=== PATIENT | female | born 1935 | race Caucasian/White ===

== ENCOUNTER 2020-06-27 09:41 | Inpatient (IN) | payer BC, MEDICARE ==
[~2020-06-27] VITALS: Ht 162.6 cm; Wt 56.8 kg
--- NOTE | 2020-06-27 10:04 | NUR ---
ED Nurse Note:caregiver Andrea [phone]
--- NOTE | 2020-06-27 10:09 | NUR ---
ED Nurse Note: PT AMBULATED TO ED C/O LOWER ABDOMEN PAIN X 5 WEEKS. PT DENIES N/V/D
[2020-06-27 10:11] VITALS: BP 125/45
[2020-06-27] MEDS ORDERED: Omnipaque-300 100ml vial INJ PRN ×2 (10:15→18:00)
[2020-06-27] MEDS ORDERED: CATAPRES0.1 MG ORAL (10:17)
[2020-06-27] MEDS ORDERED: TRAMADOL HCL50 MG ORAL (10:17)
[2020-06-27] MEDS ORDERED: CYMBALTA60 MG ORAL (10:17)
[2020-06-27] MEDS ORDERED: GABAPENTIN600 MG ORAL (10:17)
[2020-06-27] MEDS ORDERED: TIZANIDINE HCL4 MG ORAL (10:17)
[2020-06-27] MEDS ORDERED: LOSARTAN POTASS50 MG ORAL (10:17)
[2020-06-27] MEDS ORDERED: NAMENDA10 MG ORAL (10:17)
[2020-06-27] MEDS ORDERED: ARICEPT5 MG ORAL (10:17)
[2020-06-27] MEDS ORDERED: MOBIC15 MG ORAL (10:17)
--- NOTE | 2020-06-27 10:31 | NUR ---
ED Nurse Note: XRAY AT BEDSIDE
[2020-06-27 10:41] LABS: BASOPHILS % (AUTO) 1.2 % (0.0-2.0); EOSINOPHILS % (AUTO) 2.7 % (0.0-3.0); HEMATOCRIT 37.6 % (37.0-47.0); HEMOGLOBIN 12.8 G/DL (12.0-16.0); LYMPHOCYTES % (AUTO) 24.4 % (20.0-45.0); MEAN CORPUSCULAR VOLUME 96 FL (80-99); MONOCYTES % (AUTO) 10.6 % (1.0-10.0); PLATELET COUNT 449 K/UL (150-450); RED BLOOD COUNT 3.92 M/UL (4.20-5.40); RED CELL DISTRIBUTION WIDTH 13.4 % (11.6-14.8); WHITE BLOOD COUNT 7.5 K/UL (4.8-10.8)
[2020-06-27] MEDS ORDERED: Morphine Sulfate 4mg/ml Inj (IV USE ONLY) IVP ONE (10:45)
[2020-06-27 10:51] LABS: CALCIUM 9.1 MG/DL (8.5-10.1); CREATININE 1.4 MG/DL (0.55-1.30); POTASSIUM 4.7 MMOL/L (3.5-5.1)
[2020-06-27 10:59] LABS: ALBUMIN 3.2 G/DL (3.4-5.0); BILIRUBIN,TOTAL 0.3 MG/DL (0.2-1.0)
--- NOTE | 2020-06-27 11:14 | NUR ---
ED Nurse Note: Pt taken to CT on robb
[2020-06-27 11:40] VITALS: BP 91/35
--- NOTE | 2020-06-27 12:49 | Diagnostic Imaging Report ---
Clinical Indication: Right lower quadrant pain Technique: No oral contrast utilized, per emergency room physician request IV administration nonionic contrast. Venous phase spiral acquisition obtained through the abdomen and pelvis. Multiplanar reconstructions were generated. Total dose length product 260 mGycm. CTDIvol(s) 4 mGy. Dose reduction achieved using automated exposure control Comparison: none Findings: Lack of enteric contrast limits assessment of the GI tract. Distal small bowel loops are borderline dilated, fluid-filled, although no definite transition point is demonstrated. Proximal small bowel loops are normal in caliber. There is colonic diverticulosis. No evidence of acute diverticulitis. The proximal colon contains a moderate amount of retained stool. The appendix is not visualized, but no findings to suggest acute appendicitis are evident. No free or loculated intraperitoneal gas or fluid. The distal esophagus, stomach, duodenum are unremarkable. The liver demonstrates some focal fatty change in the usual location adjacent to the falciform ligament. The gallbladder is unremarkable. The common bile duct is mildly ectatic, measuring 7 mm in diameter. No downstream obstructive lesion is demonstrated. Somewhat ectatic downstream pancreatic duct. The pancreas is unremarkable. The spleen, adrenals, right kidney are unremarkable. Left kidney demonstrates one or more subcentimeter low-attenuation lesions, too small to characterize. No pelvic mass or adenopathy. Normal uterus and adnexal structures. The included lung bases demonstrate some atelectatic changes. The bones demonstrate degenerative spondylosis changes. There is a vertebra plana type compression fracture deformity of the T11 vertebral body, with approximately 5 mm of posterior retropulsion and approximately 70% height loss. Vacuum within the collapsed vertebral body suggests chronicity. Impression: Limited assessment of the GI tract, due to lack of enteric contrast administration Borderline dilated fluid-filled small bowel loops without definite transition point, may reflect mild enteritis changes. Possibility of low-grade small bowel obstruction should also be considered, but thought to be less likely Moderate retained proximal colonic stool, could indicate constipation Nonvisualized appendix Age indeterminate likely old T11 vertebral body compression fracture with 70% height loss. Consider MRI for better characterization if clinically relevant Other findings as noted, including dependent pulmonary atelectatic changes, degenerative spondylosis, probable small renal cysts, focal fatty change within the liver The CT scanner at [facility] is accredited by the [employer] and the scans are performed using protocols designed to limit radiation exposure to as low as reasonably achievable to attain images of sufficient resolution adequate for diagnostic evaluation.
--- NOTE | 2020-06-27 13:11 | Emergency Room Report ---
History of Present Illness General Chief Complaint: Abdominal Pain Source: Patient Present Illness HPI 84-year-old female here with lower abdominal pain for 3 weeks. Patient says that she has been having severe intermittent lower abdominal pain worse in the left lower quadrant over the past 3 weeks. Pain is dull in nature, occasionally radiates to her left flank. Feels intermittently nauseous but is not vomited. Says that she has been able to have bowel movements but says that she feels more constipated than usual. No change in bowel movement color or caliber. Denies fevers, chills, chest pain, palpitations, shortness of breath, back pain, other abdominal pain, nausea, vomiting, diarrhea, dysuria. 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 COVID-19 Screening: Negative COVID-19 COVID-19 Testing Source: nasal Nursing Documentation-[facility] Past Medical History: No History, Except For Hx Hypertension: Yes Hx Gastrointestinal Problems: Yes - appendectomy History Of Psychiatric Problem: Yes - dementia Review of Systems All Other Systems: negative except mentioned in HPI Physical Exam Vital Signs Date Time Temp Pulse Resp B/P (MAP) Pulse Ox O2 Delivery O2 Flow Rate FiO2 06/27/20 09:56 97.5 102 19 93/61 (72) 97 Room Air Sp02 EP Interpretation: reviewed, normal General Appearance: no apparent distress, alert, GCS 15, non-toxic Head: normocephalic, atraumatic Eyes: bilateral eye normal inspection, bilateral eye PERRL ENT: hearing grossly normal, normal pharynx, no angioedema, normal voice Neck: full range of motion, supple/symm/no masses Respiratory: chest non-tender, lungs clear, normal breath sounds, speaking full sentences Cardiovascular #1: regular rate, rhythm, no edema Cardiovascular #2: 2+ carotid (R), 2+ carotid (L), 2+ radial (R), 2+ radial (L), 2+ dorsalis pedis (R), 2+ dorsalis pedis (L) Gastrointestinal: normal bowel sounds, soft, non-distended, no guarding, no rebound, other - Diffuse lower abdominal mild tenderness without rebound or guarding. Nondistended. No masses felt Rectal: deferred Genitourinary: normal inspection, no CVA tenderness Musculoskeletal: normal range of motion, gait/station normal, non-tender, other - Sick centimeter well-healing right lower back burn without any surrounding erythema or induration or drainage Neurologic: alert, motor strength/tone normal, oriented x3, sensory intact, responsive, speech normal Psychiatric: judgement/insight normal, memory normal, mood/affect normal, no suicidal/homicidal ideation Reflexes: 3+ bicep (R), 3+ bicep (L), 3+ tricep (R), 3+ tricep (L), 3+ knee (R), 3+ knee (L) Lymphatic: no adenopathy Medical Decision Making Diagnostic Impression: Primary Impression: SBO (small bowel obstruction) Additional Impression: Abdominal pain ER Course CT abdomen pelvis: Dilated fluid-filled small bowel loops without definite transition point, may reflect mild enteritis changes versus low-grade small bowel obstruction EKG: NSR, no ischemia, intervals WNL. No ectopy. Rate 85 bpm Rhythm strip: patient monitored for arrhythmias - no malignant dysrhythmias, runs of PVCs, nor pauses noted Laboratory Tests Test 06/27/20 10:20 White Blood Count 7.5 K/UL (4.8-10.8) Red Blood Count 3.92 M/UL (4.20-5.40) L Hemoglobin 12.8 G/DL (12.0-16.0) Hematocrit 37.6 % (37.0-47.0) Mean Corpuscular Volume 96 FL (80-99) Mean Corpuscular Hemoglobin 32.6 PG (27.0-31.0) H Mean Corpuscular Hemoglobin Concent 33.9 G/DL (32.0-36.0) Red Cell Distribution Width 13.4 % (11.6-14.8) Platelet Count 449 K/UL (150-450) Mean Platelet Volume 5.5 FL (6.5-10.1) L Neutrophils (%) (Auto) 61.0 % (45.0-75.0) Lymphocytes (%) (Auto) 24.4 % (20.0-45.0) Monocytes (%) (Auto) 10.6 % (1.0-10.0) H Eosinophils (%) (Auto) 2.7 % (0.0-3.0) Basophils (%) (Auto) 1.2 % (0.0-2.0) Sodium Level 139 MMOL/L (136-145) Potassium Level 4.7 MMOL/L (3.5-5.1) Chloride Level 104 MMOL/L (98-107) Carbon Dioxide Level 25 MMOL/L (21-32) Anion Gap 10 mmol/L (5-15) Blood Urea Nitrogen 28 mg/dL (7-18) H Creatinine 1.4 MG/DL (0.55-1.30) H Estimated Glomerular Filtration Rate 35.8 mL/min (>60) Glucose Level 152 MG/DL (74-106) H Calcium Level 9.1 MG/DL (8.5-10.1) Total Bilirubin 0.3 MG/DL (0.2-1.0) Aspartate Amino Transferase (AST) 25 U/L (15-37) Alanine Aminotransferase (ALT) 17 U/L (12-78) Alkaline Phosphatase 66 U/L (46-116) Troponin I 0.000 ng/mL (0.000-0.056) Total Protein 6.5 G/DL (6.4-8.2) Albumin 3.2 G/DL (3.4-5.0) L Globulin 3.3 g/dL Albumin/Globulin Ratio 1.0 (1.0-2.7) Lipase 224 U/L (73-393) 84-year-old female complaining of 3 weeks of lower abdominal pain. Patient says that she has been having normal bowel movements but says "maybe I have been a little bit constipated." Patient had some lower abdominal tenderness on physi elle examination but did not have any abdominal distention or peritonitis or guarding or rebound. CT abdomen pelvis showed possibility of low-grade small bowel obstruction. Patient required multiple doses of IV pain medications in the emergency department with some eventual resolution of her pain. Admitted to telemetry in stable condition. ddx: Hernia, bladder or kidney stones, diverticulitis, enteritis, appendicitis, genital pathology Last Vital Signs Date Time Temp Pulse Resp B/P (MAP) Pulse Ox O2 Delivery O2 Flow Rate FiO2 06/27/20 11:40 97.5 61 23 91/35 99 Room Air Referrals: NOT CHOSEN KIMO/,REFERRING (PCP) Hu Interiano M.D. Jun 27, 2020 13:11
[2020-06-27 13:47] VITALS: BP 96/41
--- NOTE | 2020-06-27 14:19 | NUR ---
ED Nurse Note: Dr. Traylor at bedside
--- NOTE | 2020-06-27 14:23 | Consultation ---
History of Present Illness General Date patient seen: Jun 27, 2020 Reason for Hospitalization: Abdominal Pain Present Illness HPI This is a very pleasant 84-year-old female who presented to [facility] for evaluation of abdominal pain for 2-3 weeks. States she fell in early May and has been having lower back pain which resolved and now lower abdominal pain. no n/v/f/c. tolerating diet. passing flatus and BM as early as this AM which was normal. pain described as 8-10/10 intermittent lower abdominal pain worse in the left lower quadrant over the past 3 weeks. Pain is dull in nature, occasionally radiates to her left flank. CT with possible sbo. surgery called to evaluate. patient seen, chart reviewed, patient examined. hx open appy in teenage years as well as thyroidectomy. no prior sbo Allergies: Coded Allergies: No Known Allergies (Unverified , 06/27/20) COVID-19 Screening Contact w/high risk pt: No Experienced COVID-19 symptoms?: No Medication History Scheduled Clonidine Hcl* (Catapres*), 0.1 MG ORAL BID, (Reported) Donepezil Hcl* (Aricept*), 5 MG ORAL DAILY, (Reported) Duloxetine Hcl* (Cymbalta*), 60 MG ORAL DAILY, (Reported) Gabapentin* (Gabapentin*), 600 MG ORAL THREE TIMES A DAY, (Reported) Losartan Potassium* (Losartan Potassium*), 100 MG ORAL DAILY, (Reported) Meloxicam* (Mobic*), 15 MG ORAL DAILY, (Reported) Memantine Hcl* (Namenda*), 10 MG ORAL DAILY, (Reported) Tizanidine Hcl* (Zanaflex*), 2 MG ORAL THREE TIMES A DAY, (Reported) Scheduled PRN Tramadol Hcl* (Ultram*), 50 MG ORAL Q6H PRN for For Pain, (Reported) Patient History History Provided By: Patient, Medical Record, PMD Healthcare decision maker Resuscitation status Advanced Directive on File Past Medical/Surgical History Past Medical/Surgical History: (1) SBO (small bowel obstruction) (2) Abdominal pain Review of Systems Review of Symptoms General ROS: no weight loss or fever Psychological ROS: no depression or mood changes, no memory loss Ophthalmic ROS: no visual changes or eye irritation ENT ROS: no nasal congestion, hearing loss, dizziness Allergy and Immunology ROS: no allergic symptoms or urticaria Hematological and Lymphatic ROS: no swollen glands, unusual bleeding or bruising Endocrine ROS: no polyuria, polydipsia, weight changes, temperature intolerance Respiratory ROS: no cough, shortness of breath, or wheezing Cardiovascular ROS: no chest pain or dyspnea on exertion Gastrointestinal ROS: ++ abdominal pain, no bright red blood in stool. Musculoskeletal ROS: no myalgias or arthralgias Neurological ROS: no TIA or stroke symptoms Dermatological ROS: no new or changing skin lesions, rashes or pruritis Physical Exam Physical Exam General appearance: alert, cooperative, no distress, appears stated age Head: Normocephalic, without obvious abnormality, atraumatic Eyes: conjunctivae/corneas clear. PERRL, EOM's intact. Fundi benign Throat: Lips, mucosa, and tongue normal. Teeth and gums normal Neck: supple, symmetrical, trachea midline, no adenopathy, thyroid: not enlarged, symmetric, no tenderness/mass/nodules, no carotid bruit and no JVD Lungs: clear to auscultation bilaterally Heart: regular rate and rhythm, S1, S2 normal, no murmur, click, rub or gallop Abdomen: soft, non-tender. Bowel sounds normal. No masses, no organomegaly Extremities: extremities normal, atraumatic, no cyanosis or edema Pulses: 2+ and symmetric Skin: Skin color, texture, turgor normal. No rashes or lesions Neurologic: Grossly normal Last 24 Hour Vital Signs Date Time Temp Pulse Resp B/P (MAP) Pulse Ox O2 Delivery O2 Flow Rate FiO2 06/27/20 13:47 97.7 69 20 96/41 100 Room Air 06/27/20 11:40 97.5 61 23 91/35 99 Room Air 06/27/20 10:11 97.5 87 19 125/45 98 Room Air 06/27/20 10:11 87 19 Room Air 06/27/20 09:56 97.5 102 19 93/61 (72) 97 Room Air Laboratory Tests Test 06/27/20 10: White Blood Count 7.5 K/UL (4.8-10.8) Red Blood Count 3.92 M/UL (4.20-5.40) L Hemoglobin 12.8 G/DL (12.0-16.0) Hematocrit 37.6 % (37.0-47.0) Mean Corpuscular Volume 96 FL (80-99) Mean Corpuscular Hemoglobin 32.6 PG (27.0-31.0) H Mean Corpuscular Hemoglobin Concent 33.9 G/DL (32.0-36.0) Red Cell Distribution Width 13.4 % (11.6-14.8) Platelet Count 449 K/UL (150-450) Mean Platelet Volume 5.5 FL (6.5-10.1) L Neutrophils (%) (Auto) 61.0 % (45.0-75.0) Lymphocytes (%) (Auto) 24.4 % (20.0-45.0) Monocytes (%) (Auto) 10.6 % (1.0-10.0) H Eosinophils (%) (Auto) 2.7 % (0.0-3.0) Basophils (%) (Auto) 1.2 % (0.0-2.0) Sodium Level 139 MMOL/L (136-145) Potassium Level 4.7 MMOL/L (3.5-5.1) Chloride Level 104 MMOL/L (98-107) Carbon Dioxide Level 25 MMOL/L (21-32) Anion Gap 10 mmol/L (5-15) Blood Urea Nitrogen 28 mg/dL (7-18) H Creatinine 1.4 MG/DL (0.55-1.30) H Estimat Glomerular Filtration Rate 35.8 mL/min (>60) Glucose Level 152 MG/DL (74-106) H Calcium Level 9.1 MG/DL (8.5-10.1) Total Bilirubin 0.3 MG/DL (0.2-1.0) Aspartate Amino Transf (AST/SGOT) 25 U/L (15-37) Alanine Aminotransferase (ALT/SGPT) 17 U/L (12-78) Alkaline Phosphatase 66 U/L (46-116) Troponin I 0.000 ng/mL (0.000-0.056) Total Protein 6.5 G/DL (6.4-8.2) Albumin 3.2 G/DL (3.4-5.0) L Globulin 3.3 g/dL Albumin/Globulin Ratio 1.0 (1.0-2.7) Lipase 224 U/L (73-393) Height (Feet): 5 Height (Inches): 4.00 Weight (Pounds): 128 Medications Current Medications Medications (Trade) Dose Ordered Sig/Zacarias Route PRN Reason Start Time Stop Time Status Last Admin Dose Admin Iohexol (OMNIPAQUE-300 100ml) 100 ml NOW PRN INJ Radiology Procedure 06/27/20 10:15 06/29/20 10:14 Assessment/Plan Problem List: (1) SBO (small bowel obstruction) Assessment & Plan: 84F abd pain for weeks. no n/v/f/c. lab okay. CT with ? sbo tolerating diet +_flatus and BM abd exam benign hx prior appy open in teenage years no prior sbo hx fall 3 weeks ago and initially lower back pain but now lower abdominal pain unsure if related constipated okay for liquid diet trial bowel regimen am KUB will follow with exams and recs thank you ICD Codes: K56.609 - Unspecified intestinal obstruction, unspecified as to partial versus complete obstruction SNOMED: [id number] (2) Abdominal pain Assessment & Plan: Distal small bowel loops are borderline dilated, fluid-filled, although no definite transition point is demonstrated. Proximal small bowel loops are normal in caliber. There is colonic diverticulosis. No evidence of acute diverticulitis. The proximal colon contains a moderate amount of retained stool. The appendix is not visualized, but no findings to suggest acute appendicitis are evident. No free or loculated intraperitoneal gas or fluid. The distal esophagus, stomach, duodenum are unremarkable. The liver demonstrates some focal fatty change in the usual location adjacent to the falciform ligament. The gallbladder is unremarkable. The common bile duct is mildly ectatic, measuring 7 mm in diameter. No downstream obstructive lesion is demonstrated. Somewhat ectatic downstream pancreatic duct. The pancreas is unremarkable. The spleen, adrenals, right kidney are unremarkable. Left kidney demonstrates one or more subcentimeter low-attenuation lesions, too small to characterize. No pelvic mass or adenopathy. Normal uterus and adnexal structures. The included lung bases demonstrate some atelectatic changes. The bones demonstrate degenerative spondylosis changes. There is a vertebra plana type compression fracture deformity of the T11 vertebral body, with approximately 5 mm of posterior retropulsion and approximately 70% height loss. Vacuum within the collapsed vertebral body suggests chronicity. Impression: Limited assessment of the GI tract, due to lack of enteric contrast administration Borderline dilated fluid-filled small bowel loops without definite transition point, may reflect mild enteritis changes. Possibility of low-grade small bowel obstruction should also be considered, but thought to be less likely Moderate retained proximal colonic stool, could indicate constipation Nonvisualized appendix ICD Codes: R10.9 - Unspecified abdominal pain SNOMED: [id number] Rubin Traylor Jun 27, 2020 14:23
[2020-06-27] MEDS ORDERED: LORazepam 1mg tab ORAL PRN (14:30)
[2020-06-27] MEDS ORDERED: Milk of Magnesia 30ml Ud ORAL PRN ×2 (14:30→18:00)
[2020-06-27] MEDS ORDERED: Miralax 17gm pkt ORAL PRN ×2 (14:30→18:15)
[2020-06-27] MEDS ORDERED: Mylanta II UD 30ml ORAL PRN ×2 (14:30→18:15)
[2020-06-27 15:20] VITALS: BP 123/65
[2020-06-27] MEDS ORDERED: Albuterol/Ipratropium 3ml neb HHN PRN ×2 (15:30→18:15)
[2020-06-27] MEDS ORDERED: D5 1/2NS w/KCl 20mEq 1,000 ML IV SCH (15:30)
--- NOTE | 2020-06-27 15:34 | NUR ---
ED Nurse Note: Pt in bed resting, pt given lemon swabs to keep mouth moist
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
[2020-06-27] MEDS ORDERED: HYDROcodone/Acetamin 5/325 tab ORAL PRN (16:00)
--- NOTE | 2020-06-27 16:00 | NUR ---
ED Nurse Note: telephone report given to jennifer gates Addendum: 06/27/20 at 1631 by JUANA ED Nurse Note: ED Nurse Note: telephone report given to jennifer hernandez* for continuity of care
--- NOTE | 2020-06-27 16:11 | General Progress Note ---
Advance Care Planning Advance Care Planning Advance Care Planning [facility] An independent Hospitalist group, where every patient is our [facility] Internal Medicine Hospitalist Advanced Care Planning Note Please contact us at Date of Discussion: A [id number] discussion with the patient regarding the patient's advanced care planning took place during this hospitalization on the above date. The discussion included the explanation and discussion of advance directives and associated forms/documents, as well as the patient's current code status. We also discussed at length the patient's medical conditions (both acute and chroni c), general prognosis, treatment options, and goals of care. The following summarizes the discussion: Advance Care Planning/Goals of Care: - Will attempt to fill out an AD and/or POLST with the patient prior to discharge, if not already completed - Continue current evaluation and management of any acute and chronic medical issues - Will continue to support the patient/family - Will continue to discuss both short- and long-term goals of care DPOA-HC/Surrogate Decision Maker: None currently appointed Code Status: Full Code Advanced Care Planning Forms/Documents Completed: Deferred until later encounter/visit A total of 15 minutes was spent on this discussion, including counseling, answering questions, and completing, if any, pertinent advanced care planning forms/documents. Time of note may not reflect time of encounter. Paul Burnett D.O Jun 27, 2020 16:11
--- NOTE | 2020-06-27 16:25 | NUR ---
TRANSFER TO FLOOR: Patient transferred to tele as ordered, per ermd . Report given to jennifer hernandez. Belongings given to pt.
[2020-06-27 16:40] VITALS: BP 127/44
[2020-06-27] MEDS: D5 1/2NS w/KCl 20mEq 1,000 ML IV SCH (18:01)
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
--- NOTE | 2020-06-27 19:09 | Diagnostic Imaging Report ---
Indication: Shortness of breath Technique: One view of the chest Comparison: none Findings: The lungs and pleural spaces are clear. The heart size is normal Impression: No acute process
--- NOTE | 2020-06-27 19:30 | NUR ---
NURSE NOTES: RECEIVED REPORT FROM ABDON MORROW. PATIENT AAOX4, VERBALLY RESPONSIVE, AND ABLE TO MAKE NEEDS KNOWN. NOTED TO BE SITTING UP IN BED, NOT TRYING TO GET OOB UNASSISTED. NO COMPLAINTS OF PAIN OR DISCOMFORT AT THIS TIME. BREATHING IS EVEN AND UNLABORED ON ROOM AIR, NO S/SX OF DISTRESS NOTED. PATIENT HAS NO IV SITE AT THIS TIME. FALL PREVENTION EDUCATION PROVIDED- PATIENT VERBALIZED UNDERSTANDING. BED LOCKED AND IN LOWEST POSITION, SIDERAILS UP X 2. CALL LIGHT WITHIN REACH. WILL CONTINUE TO MONITOR.
--- NOTE | 2020-06-27 19:42 | NUR ---
NURSE HAND-OFF REPORT: Important Events on Shift: Patient Status: Diet: Pending Orders: Pending Results/Labs: Pending MD notification: Latest Vital Signs: Temperature 98.0 , Pulse 73 , B/P 127 /44 , Respiratory Rate 19 , O2 SAT 98 , Room Air, O2 Flow Rate . Vital Sign Comment: EKG Rhythm: Sinus Rhythm Rhythm change?: N MD Notified?: - MD Response: Latest Guajardo Fall Score: 55 Fall Risk: High Risk Safety Measures: Call light Within Reach, Bed Alarm Zone 1, Side Rails Side Rails x2, Bed position Low and Locked. Fall Precautions: Yellow Socks Yellow Gown Door Sign Patient Fall Education Report given to . Pt is awake and stable, no stress noted. Endorsed plan of care.
[2020-06-27 20:00] VITALS: BP 118/50
[2020-06-27] MEDS: Docusate 100mg cap ORAL SCH (20:52)
[2020-06-27] MEDS: Heparin 5000 units/ml inj SUBQ SCH (20:56)
[2020-06-27] MEDS: HYDROcodone/Acetamin 5/325 tab ORAL PRN (20:58)
[2020-06-27] MEDS ORDERED: Docusate 100mg cap ORAL SCH (21:00)
[2020-06-27] MEDS ORDERED: Heparin 5000 units/ml inj SUBQ SCH (21:00)
--- NOTE | 2020-06-27 21:00 | NUR ---
NURSE NOTES: PATIENT REFUSED TO USE BEDSIDE COMMODE. EXPLAINED RISKS AND BENEFITS, BUT STILL INSISTED ON AMBULATING TO BATHROOM.
--- NOTE | 2020-06-27 21:25 | NUR ---
NURSE NOTES: IV ACCESS ESTABLISHED ON RAC 20G. IVF RESUMED PRESCRIBED.
[2020-06-28] VITALS (7 sets, daily range): BP systolic 120–154; BP diastolic 39–74
--- NOTE | 2020-06-28 01:00 | NUR ---
NURSE NOTES: PATIENT APPEARS CONFUSED, TRYING TO GETTING OOB UNASSISTED. RESPONSIVE TO RE-DIRECTION AND RE-ORIENTATION. APPEARS CALM AND COMFORTABLE IN BED WITH NO S/SX OF DISTRESS. WILL CONTINUE TO MONITOR.
[2020-06-28] MEDS: LORazepam 1mg tab ORAL PRN ×2 (01:06→23:18)
[2020-06-28] MEDS: HYDROcodone/Acetamin 5/325 tab ORAL PRN ×2 (02:31→23:27)
[2020-06-28] MEDS: D5 1/2NS w/KCl 20mEq 1,000 ML IV SCH ×2 (06:54→20:40)
--- NOTE | 2020-06-28 07:25 | NUR ---
NURSE HAND-OFF REPORT: Important Events on Shift: RESTLESSNESS THROUGHOUT THE NIGHT, PAIN MANAGEMENT Patient Status: STABLE Diet: CLEAR LIQUID DIET Pending Orders: ABD X-RAY FOR TODAY Pending Results/Labs: 06/28 AM LABS Pending MD notification: N/A Latest Vital Signs: Temperature 97.1 , Pulse 68 , B/P 120 /54 , Respiratory Rate 18 , O2 SAT 98 , Room Air, O2 Flow Rate . Vital Sign Comment: STABLE EKG Rhythm: Sinus Rhythm Rhythm change?: N MD Notified?: N - MD Response: Latest Guajardo Fall Score: 55 Fall Risk: High Risk Safety Measures: Call light Within Reach, Bed Alarm Zone 1, Side Rails Side Rails x2, Bed position Low and Locked. Fall Precautions: Yellow Socks Yellow Gown Door Sign Patient Fall Education Report given to ABDON DOBBS.
[2020-06-28 07:39] LABS: BLOOD UREA NITROGEN 17 mg/dL (7-18); CALCIUM 8.3 MG/DL (8.5-10.1); CHLORIDE 106 MMOL/L (98-107); CREATININE 1.1 MG/DL (0.55-1.30); PHOSPHORUS 3.2 MG/DL (2.5-4.9); POTASSIUM 4.2 MMOL/L (3.5-5.1); SODIUM 139 MMOL/L (136-145)
[2020-06-28 07:41] LABS: BASOPHILS % (AUTO) 1.1 % (0.0-2.0); EOSINOPHILS % (AUTO) 3.9 % (0.0-3.0); HEMATOCRIT 35.1 % (37.0-47.0); HEMOGLOBIN 11.8 G/DL (12.0-16.0); LYMPHOCYTES % (AUTO) 31.5 % (20.0-45.0); MEAN CORPUSCULAR VOLUME 97 FL (80-99); MONOCYTES % (AUTO) 13.4 % (1.0-10.0); NEUTROPHILS % (AUTO) 50.2 % (45.0-75.0); PLATELET COUNT 372 K/UL (150-450); RED BLOOD COUNT 3.63 M/UL (4.20-5.40); RED CELL DISTRIBUTION WIDTH 13.3 % (11.6-14.8); WHITE BLOOD COUNT 5.6 K/UL (4.8-10.8)
[2020-06-28 07:50] LABS: CARBON DIOXIDE 27 MMOL/L (21-32)
--- NOTE | 2020-06-28 08:26 | NUR ---
NURSE NOTES: Received report from Addie Pt is A/O x 4 but forgetful. No SOB or acute distress noted. No pain noted. Pt has IV LAC 18G which is intact. Pt is ambulatory but unsteady. Education given to ask for help with any needs. Pt's bed locked and is in the lowest position with bed alarm on, call light placed within reach. Will continue to plan of care.
[2020-06-28] MEDS: Heparin 5000 units/ml inj SUBQ SCH ×2 (08:51→20:50)
[2020-06-28] MEDS: Docusate 100mg cap ORAL SCH ×2 (08:51→20:49)
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
--- NOTE | 2020-06-28 11:53 | Diagnostic Imaging Report ---
Indication: Abdominal pain Technique: Supine view of the abdomen Comparison: No comparison plain radiographs. Reference made to abdomen pelvis CT 06/27/2020 Findings: There are mild degenerative changes of the lumbar spine. Bowel gas pattern is unremarkable. Contrast is seen within the bladder, presumably from recent CT scan gas pattern is unremarkable. There are degenerative changes of the right hip joint Impression: No acute process
--- NOTE | 2020-06-28 12:05 | NUR ---
P.T Note: P.T evaluation completed and tx initiated. Please refer to P.T evaluation for current functional status. Pt is alert, O x 4 , pleasant and cooperative despite pain in abdomen and lower back graded as 7/10 affecting overall functional mobility performance and safety. Pt currently requires MIN A X 1 for bed mobilities and transfer mobility. Pt presented unsteady gait requiring MIN A/hand held assisted to maintain ambulatory balance. Overall fair activity tolerance. Pt will benefit from skilled P.T service to improve mobility independence and safety to facilitate return to PLOF. Recommend home P.T as pt has CG available at home VS SNF to further increase mobility independence at home. Pt is cleared for OOB activities with nursing assist. Thank you for this referral.
--- NOTE | 2020-06-28 12:13 | NUR ---
CASE MANAGEMENT:REVIEW 84YR OLD PRESENTED TO ER FROM HOME CC: ABDOMINAL PAIN X3 WEEKS SI: SMALL BOWEL OBSTRUCTION 97.5 102 19 93/61 97% ON RA BUN+28 CR+1.4 IS: 500CC NS BOLUS 1L NS BOLUS IV MORPHINE CT ABD/PELVIS CHEST XRAY : TO TELEMETRY DCP: FROM HOME
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
--- NOTE | 2020-06-28 13:00 | Consultation ---
DATE OF CONSULTATION: 06/28/2020 PULMONARY CONSULTATION CONSULTING PHYSICIAN: Vivek Motley MD. HISTORY OF PRESENT ILLNESS: This is an 84-year-old female with a known history of dementia and hypertension. She also has a history of asthma. The patient came to the hospital with a remote history of a fall. She also reported lower abdominal and back pain. She was seen and worked up and there was concern noted about bowel obstruction. The patient has reported recently lost weight. In the ER, she was worked up and found to have possible SBO, overnight she was admitted and seen by Surgery. PAST MEDICAL HISTORY: Dementia, hypertension. PREVIOUS SURGERIES: Appendectomy, thyroid surgery. SOCIAL HISTORY: Denies alcohol or tobacco usage. She has a history of asthma. ALLERGIES: None. HOME MEDICATIONS: Include clonidine, Aricept, Cymbalta, gabapentin, losartan, Mobic, Namenda, and Zanaflex. REVIEW OF SYSTEMS: The patient denies any headaches, hematemesis, melena, or hematochezia. PHYSICAL EXAMINATION: VITAL SIGNS: Blood pressure is 120/40, heart rate 84, respirations 20, she is afebrile, O2 saturation on room air. GENERAL: Reveals an 84-year-old female. HEENT: Unremarkable. LUNGS: Diminished breath sounds. ABDOMEN: Soft. There is mild distention. EXTREMITIES: There is no edema. LABORATORY DATA: Lab testing shows hemoglobin 11.8, otherwise normal CBC and BMP. Creatinine 1.4. Coags are negative. DIAGNOSTIC DATA: The x-ray of the chest was reviewed, which shows clear lung hackett bilaterally. CT of the abdomen and pelvis was obtained, which shows possibility of bowel obstruction. There is also atelectasis noted in the parenchyma. IMPRESSION: 1. Pulmonary atelectasis. 2. Bowel obstruction?. 3. Dementia. 4. Hypertension. DISCUSSION: Admit to the hospital. Seen by Surgery. Await further intervention. IV fluids. prophylaxis. We will follow. Vivek Motley M.D. DR: BRENNA/VICKI JOB#: [id number] CC:
--- NOTE | 2020-06-28 13:33 | NUR ---
RADIOLOGY DEPT., ABDOMEN X-RAY COMPLETED.-P.DYE
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
--- NOTE | 2020-06-28 16:25 | Cardiology Report ---
APPROVED REPORT EKG Measurement Heart [id number] <Conclusion> Normal sinus rhythm Low voltage QRS Borderline ECG
--- NOTE | 2020-06-28 18:04 | NUR ---
NURSE NOTES: SPOKE WITH DR ROBLEDO IN REGARDS TO THE ATTENDING MD, AND THE ADMIT ORDER TO MED SURG, STATED PT CAN BE TRANSFER TO [facility], AND INFORMED HER THAT RECORD SHOWS THAT DR GOODWIN IS THE ATTENDING, DR ROBLEDO SAID SHE WILL CALL US BACK TO CLARIFY WITH DR GOODWIN. DR ROBLEDO CALLED BACK AGAIN AND ACCORDING TO HER DR GOODWIN STILL THE ATTENDING MD.
--- NOTE | 2020-06-28 19:37 | NUR ---
NURSE NOTES: Received report from ABDON [place]. Patient is awake on bed, alert and oriented x 2-3. Patient is on clear liquid diet, instructed. On fall and aspiration precaution, bed alarm is on. IV site is on left AC G-22 saline lock that is patent and intact. Safety measures are in place, bed in lowest and locked position, sdie rails up x 2, call light button and bedside table within reach, instructed to call for any assistance needed. Will continue plan of care.
--- NOTE | 2020-06-28 19:40 | NUR ---
NURSE HAND-OFF REPORT: Important Events on Shift: Tranfer order to med- surg Patient Status: Stable Diet: Clear Liquid Pending Orders: Pending Results/Labs: Pending MD notification: Latest Vital Signs: Temperature 96.4 , Pulse 85 , B/P 138 /54 , Respiratory Rate 18 , O2 SAT 97 , Room Air, O2 Flow Rate . Vital Sign Comment: EKG Rhythm: Sinus Rhythm Rhythm change?: N MD Notified?: N - MD Response: Latest Guajardo Fall Score: 55 Fall Risk: High Risk Safety Measures: Call light Within Reach, Bed Alarm Zone 1, Side Rails Side Rails x2, Bed position Low and Locked. Fall Precautions: Yellow Socks Yellow Gown Door Sign Patient Fall Education Report given to Addie.
--- NOTE | 2020-06-28 23:10 | NUR ---
TRANSFER TO FLOOR: Patient transferred to 301-2, per bed. Report given to ABDON Reyna. Belongings and medications given to receiving nurse. Family and or S/O informed of transfer. Patient is fall precaution, plan of care endorsed. At this time, patient is in stable condition, complaints of pain on her lower back, tylenol 650 mg was given.
--- NOTE | 2020-06-28 23:15 | NUR ---
NURSE NOTES: Patient transfer from Tele unit. report from Bethany COPPOLA. A&OX2, confused. IV site patent and intact. Bilateral heels redness and wound noted on right lower back, picture taken, dressing changed as ordered. Belongings were checked with Bethany COPPOLA. Patient confused, trying to get out of bed, re-oriented. Bed in lowest position. Call light within reach. Will continue to monitor.
[2020-06-29] MEDS: HYDROcodone/Acetamin 5/325 tab ORAL PRN ×3 (03:39→17:14)
[2020-06-29 04:00] VITALS: BP 158/80
[2020-06-29 05:29] LABS: BLOOD UREA NITROGEN 9 mg/dL (7-18); CALCIUM 8.6 MG/DL (8.5-10.1); CHLORIDE 107 MMOL/L (98-107); POTASSIUM 4.1 MMOL/L (3.5-5.1); SODIUM 140 MMOL/L (136-145)
[2020-06-29 05:34] LABS: CARBON DIOXIDE 26 MMOL/L (21-32)
--- NOTE | 2020-06-29 07:29 | NUR ---
NURSE HAND-OFF: Important Events on Shift: Patient very confused, tried get out of bed many times, high fall risk. Patient Status: Diet: Clear liquid Pending Orders: Pending Results/Labs: Pending MD notification: Latest Vital Signs: Temperature 97.8 , Pulse 94 , B/P 158 /80 , Respiratory Rate 20 , O2 SAT 97 , Room Air, O2 Flow Rate . Vital Sign Comment: Latest Guajardo Fall Score: 70 Fall Risk: High Risk Safety Measures: Call light Within Reach, Bed Alarm Zone 2, Side Rails Side Rails x2, Bed position Low and Locked. Fall Precautions: Yellow Socks Yellow Gown Door Sign Patient Fall Education Report given to Jonh COPPOLA.
--- NOTE | 2020-06-29 07:40 | NUR ---
NURSE NOTES: Received report from Nery RN, rounds made, pt sleeping breaths regular unlabored on RA, no s/s of distress on RA,pt has IVF on the LT AC , intact patent asymptomatic, bed alarm on for fall precaution bed in low locked position, side rails upX2, call light with in reach,will continue to monitor
[2020-06-29 08:00] VITALS: BP 129/73
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
[2020-06-29] MEDS: Docusate 100mg cap ORAL SCH ×2 (08:48→20:19)
[2020-06-29] MEDS: Heparin 5000 units/ml inj SUBQ SCH ×2 (08:48→20:23)
--- NOTE | 2020-06-29 09:41 | NUR ---
CASE MANAGEMENT:REVIEW SI;SMALL BOWEL OBSTRUCTION 97.8 95 20 158/80 97% ON RA IS;HEPARIN SUBQ Q12 NORCO PO Q4 PRN PEPCID PO BID IVF D5W@ 75 ML/HR TRANSFERRED FROM TELE TO MED SURG 06/28/20 MED SURG STATUS DCP;PATIENT IS FROM HOME
[2020-06-29] MEDS ORDERED: Milk of Magnesia 30ml Ud ORAL SCH (10:00)
--- NOTE | 2020-06-29 10:19 | Pulmonology Progress Note ---
Subjective ROS Limited/Unobtainable: No Interval Events: None new Constitutional: Reports: no symptoms HEENT: Repors: no symptoms Respiratory: Reports: no symptoms Cardiovascular: Reports: no symptoms Gastrointestinal/Abdominal: Reports: no symptoms Genitourinary: Reports: no symptoms Allergies: Coded Allergies: No Known Allergies (Unverified , 06/27/20) Objective Last 24 Hour Vital Signs Date Time Temp Pulse Resp B/P (MAP) Pulse Ox O2 Delivery O2 Flow Rate FiO2 06/29/20 09:00 Room Air 06/29/20 08:00 97.1 86 20 129/73 (91) 97 06/29/20 04:00 97.8 94 20 158/80 (106) 97 06/28/20 23:54 97.5 95 20 154/74 (100) 97 06/28/20 23:48 95 20 154/74 97 06/28/20 23:18 81 18 144/53 97 06/28/20 22:15 Room Air 06/28/20 21:00 Room Air 06/28/20 20:06 81 18 97 Room Air 21 06/28/20 20:00 98.1 78 20 144/53 (83) 98 06/28/20 16:00 85 06/28/20 16:00 96.4 79 18 138/54 (82) 97 06/28/20 12:00 98.2 84 18 126/52 (76) 96 06/28/20 12:00 85 Intake and Output 06/28/20 06/29/20 19:00 07:00 Intake Total 1470 ml 645 ml Balance 1470 ml 645 ml Intake Oral 1470 ml 120 ml IV Total 525 ml # Voids 4 1 General Appearance: no acute distress HEENT: normocephalic Respiratory: chest wall non-tender, lungs clear Cardiovascular: normal peripheral pulses, normal rate Abdomen: normal bowel sounds Laboratory Tests 06/29/20 05:00: Sodium Level 140, Potassium Level 4.1, Chloride Level 107, Carbon Dioxide Level 26, Blood Urea Nitrogen 9, Creatinine 1.0, Estimat Glomerular Filtration Rate 52.7, Glucose Level 108H, Calcium Level 8.6 Current Medications Medications (Trade) Dose Ordered Sig/Zacarias Route PRN Reason Start Time Stop Time Status Last Admin Dose Admin Acetaminophen (Tylenol) 650 mg Q4H PRN ORAL Mild Pain (Pain Scale 1-3) 06/27/20 18:00 07/27/20 17:59 06/28/20 22:33 Acetaminophen/ Hydrocodone Bitart (Drake 5/325) 1 tab Q4H PRN ORAL Moderate Pain (Pain Scale 4-6) 06/27/20 18:15 07/04/20 18:14 06/29/20 03:39 Al Hydroxide/Mg Hydroxide (Mylanta II) 30 ml Q6H PRN ORAL dyspepsia 06/27/20 18:15 07/27/20 18:14 Albuterol/ Ipratropium (Albuterol/ Ipratropium) 3 ml Q4H PRN HHN Shortness of Breath 06/27/20 18:15 07/02/20 18:14 Bisacodyl (Dulcolax) 10 mg DAILYPRN PRN RECTAL Constipation 06/27/20 18:00 09/25/20 17:59 Dextrose (Dextrose 50%) 25 ml Q30M PRN IV Hypoglycemia 06/27/20 18:15 09/25/20 18:14 Dextrose (Dextrose 50%) 50 ml Q30M PRN IV Hypoglycemia 06/27/20 18:15 09/25/20 18:14 Dextrose/ Electrolytes 1,000 ml @ 75 mls/hr [id number] IV 06/27/20 18:00 07/27/20 17:59 06/28/20 06:54 Diphenhydramine HCl (Benadryl) 25 mg Q6H PRN ORAL Itching/Pruritis 06/27/20 18:15 07/27/20 18:14 06/28/20 23:24 Docusate Sodium (Colace) 100 mg EVERY 12 HOURS ORAL 06/27/20 21:00 07/27/20 20:59 06/29/20 08:48 Famotidine (Pepcid) 20 mg BID ORAL 06/27/20 18:00 09/25/20 17:59 06/29/20 08:48 Heparin Sodium (Porcine) (Heparin 5000 units/ml) 5,000 units EVERY 12 HOURS SUBQ 06/27/20 21:00 08/11/20 20:59 06/29/20 08:48 Lorazepam (Ativan) 1 mg Q4H PRN ORAL For Anxiety 06/27/20 18:15 07/04/20 18:14 06/28/20 23:18 Magnesium Hydroxide (Mom) 30 ml HSPRN PRN ORAL Constipation 06/27/20 18:00 07/27/20 17:59 06/28/20 22:34 Magnesium Hydroxide (Mom) 30 ml ONCE ORAL 06/29/20 10:00 06/29/20 11:00 Ondansetron HCl (Zofran) 4 mg Q6H PRN IVP Nausea & Vomiting 06/27/20 18:15 07/27/20 18:14 Polyethylene Glycol (Miralax) 17 gm DAILYPRN PRN ORAL Constipation 06/27/20 18:15 07/27/20 18:14 06/28/20 12:27 Temazepam (Restoril) 15 mg HSPRN PRN ORAL Insomnia 06/27/20 21:00 07/04/20 20:59 06/28/20 20:49 Assessment/Plan Assessment/Plan IMPRESSION: 1. Pulmonary atelectasis. 2. Bowel obstruction?. 3. Dementia. 4. Hypertension. DISCUSSION: Seen by Surgery. Await further intervention. IV fluids. DVT prophylaxis. Pulmonary hygiene Oscar Coon Omar Syed MD Jun 29, 2020 10:19
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
[2020-06-29] MEDS: D5 1/2NS w/KCl 20mEq 1,000 ML IV SCH ×2 (11:02→23:20)
[2020-06-29 12:00] VITALS: BP 158/81
[2020-06-29 16:00] VITALS: BP 115/89
--- NOTE | 2020-06-29 17:03 | Surgery Progress Note ---
Surgery Progress Note Subjective Symptoms: improved, tolerating diet, voiding well, passing flatus, BM, pain decreased Objective Last 24 Hour Vital Signs Date Time Temp Pulse Resp B/P (MAP) Pulse Ox O2 Delivery O2 Flow Rate FiO2 06/29/20 16:00 98.3 90 21 115/89 (98) 97 06/29/20 12:00 97.1 86 20 158/81 (106) 97 06/29/20 09:00 Room Air 06/29/20 08:00 97.1 86 20 129/73 (91) 97 06/29/20 04:00 97.8 94 20 158/80 (106) 97 06/28/20 23:54 97.5 95 20 154/74 (100) 97 06/28/20 23:48 95 20 154/74 97 06/28/20 23:18 81 18 144/53 97 06/28/20 22:15 Room Air 06/28/20 21:00 Room Air 06/28/20 20:06 81 18 97 Room Air 21 06/28/20 20:00 98.1 78 20 144/53 (83) 98 I&O Intake and Output 06/28/20 06/29/20 19:00 07:00 Intake Total 1470 ml 645 ml Balance 1470 ml 645 ml Intake Oral 1470 ml 120 ml IV Total 525 ml # Voids 4 1 Cardiovascular: RSR Respiratory: clear Abdomen: soft, non-tender, present bowel sounds, non-distended Extremities: no edema, no tenderness, no cyanosis Laboratory Tests Test 06/29/20 05:00 Sodium Level 140 MMOL/L (136-145) Potassium Level 4.1 MMOL/L (3.5-5.1) Chloride Level 107 MMOL/L (98-107) Carbon Dioxide Level 26 MMOL/L (21-32) Blood Urea Nitrogen 9 mg/dL (7-18) Creatinine 1.0 MG/DL (0.55-1.30) Estimat Glomerular Filtration Rate 52.7 mL/min (>60) Glucose Level 108 MG/DL (74-106) H Calcium Level 8.6 MG/DL (8.5-10.1) Plan Problems: (1) SBO (small bowel obstruction) Assessment & Plan: 84F abd pain for weeks. no n/v/f/c. lab okay. CT with ? sbo tolerating diet +_flatus and BM abd exam benign hx prior appy open in teenage years no prior sbo hx fall 3 weeks ago and initially lower back pain but now lower abdominal pain unsure if related constipated okay for liquid diet trial bowel regimen am KUB will follow with exams and recs thank you carter okay advance diet as tolerated (2) Abdominal pain Assessment & Plan: Distal small bowel loops are borderline dilated, fluid-filled, although no definite transition point is demonstrated. Proximal small bowel loops are normal in caliber. There is colonic diverticulosis. No evidence of acute diverticulitis. The proximal colon contains a moderate amount of retained stool. The appendix is not visualized, but no findings to suggest acute appendicitis are evident. No free or loculated intraperitoneal gas or fluid. The distal esophagus, stomach, duodenum are unremarkable. The liver demonstrates some focal fatty change in the usual location adjacent to the falciform ligament. The gallbladder is unremarkable. The common bile duct is mildly ectatic, measuring 7 mm in diameter. No downstream obstructive lesion is demonstrated. Somewhat ectatic downstream pancreatic duct. The pancreas is unremarkable. The spleen, adrenals, right kidney are unremarkable. Left kidney demonstrates one or more subcentimeter low-attenuation lesions, too small to characterize. No pelvic mass or adenopathy. Normal uterus and adnexal structures. The included lung bases demonstrate some atelectatic changes. The bones demonstrate degenerative spondylosis changes. There is a vertebra plana type compression fracture deformity of the T11 vertebral body, with approximately 5 mm of posterior retropulsion and approximately 70% height loss. Vacuum within the collapsed jessica tebral body suggests chronicity. Impression: Limited assessment of the GI tract, due to lack of enteric contrast administration Borderline dilated fluid-filled small bowel loops without definite transition point, may reflect mild enteritis changes. Possibility of low-grade small bowel obstruction should also be considered, but thought to be less likely Moderate retained proximal colonic stool, could indicate constipation Nonvisualized appendix Rubin Traylor Jun 29, 2020 17:03
--- NOTE | 2020-06-29 19:16 | NUR ---
NURSE HAND-OFF: Important Events on Shift: Patient Status: stable Diet: regular easy chew Pending Orders: Pending Results/Labs: Pending MD notification: Latest Vital Signs: Temperature 98.3 , Pulse 90 , B/P 115 /89 , Respiratory Rate 21 , O2 SAT 97 , Room Air, O2 Flow Rate . Vital Sign Comment: Latest Guajardo Fall Score: 70 Fall Risk: High Risk Safety Measures: Call light Within Reach, Bed Alarm Zone 2, Side Rails Side Rails x2, Bed position Low and Locked. Fall Precautions: Yellow Socks Yellow Gown Door Sign Patient Fall Education Report given to Juan COPPOLA.
--- NOTE | 2020-06-29 19:40 | NUR ---
Received report from am nurse. Pt is awake, alert, confused. Denies any pain. IV fluid infusing per MD order. Bed in lowest position and locked. Side rails up x 2. Will continue to monitor.
[2020-06-29 20:00] VITALS: BP 158/77
[2020-06-29] MEDS: LORazepam 1mg tab ORAL PRN (20:19)
--- NOTE | 2020-06-29 20:49 | NUR ---
Patient anxious keeps asking for her caregiver Andrea, getting out of bed without calling. Re-oriented pt to place and time. Pt forgetful. Safely back in bed. Ativan given for anxiety. Will continue to monitor.
--- NOTE | 2020-06-29 21:20 | NUR ---
Patient c/o severe pain. Pain medication ordered only for mild and moderate pain. Contacted and spoke with Dr. Motley, order obtained for severe pain. Per MD, hold all home medications.
[2020-06-29] MEDS ORDERED: HYDROmorphone 1mg/ml Carpuject IVP PRN (21:30)
[2020-06-29 23:31] VITALS: BP 134/77
[2020-06-30 04:00] VITALS: BP 147/73
[2020-06-30] MEDS: D5 1/2NS w/KCl 20mEq 1,000 ML IV SCH (06:38)
--- NOTE | 2020-06-30 07:16 | NUR ---
NURSE NOTES: Received report from Juan RN, rounds made, pt sleeping breaths regular unlabored on RA, no s/s of distress on RA,pt has IVF on the LT Forearm , intact patent asymptomatic, bed alarm on for fall precaution bed in low locked position, side rails upX2, call light with in reach. PT kept on getting up at night per shift supervisor nurse ,will continue to monitor
--- NOTE | 2020-06-30 07:16 | NUR ---
NURSE HAND-OFF: Important Events on Shift:[] Patient Status: [] Diet: [] Pending Orders: [] Pending Results/Labs:[] Pending MD notification:[] Latest Vital Signs: Temperature 98.0 , Pulse 94 , B/P 147 /73 , Respiratory Rate 18 , O2 SAT 95 , Room Air, O2 Flow Rate . Vital Sign Comment: [] Latest Guajardo Fall Score: 70 Fall Risk: High Risk Safety Measures: Call light Within Reach, Bed Alarm Zone 2, Side Rails Side Rails x2, Bed position Low and Locked. Fall Precautions: Yellow Socks Yellow Gown Door Sign Patient Fall Education Report given to [].
--- NOTE | 2020-06-30 07:21 | NUR ---
HAND-OFF: Report given to ABDON Borja
[2020-06-30 07:27] LABS: CALCIUM 8.8 MG/DL (8.5-10.1); POTASSIUM 4.2 MMOL/L (3.5-5.1)
[2020-06-30 08:00] VITALS: BP 150/81
[2020-06-30] MEDS: Heparin 5000 units/ml inj SUBQ SCH (08:38)
[2020-06-30] MEDS: Docusate 100mg cap ORAL SCH (09:02)
--- NOTE | 2020-06-30 10:57 | Pulmonology Progress Note ---
Subjective ROS Limited/Unobtainable: No Interval Events: None new Constitutional: Reports: no symptoms HEENT: Repors: no symptoms Respiratory: Reports: no symptoms Cardiovascular: Reports: no symptoms Gastrointestinal/Abdominal: Reports: no symptoms Genitourinary: Reports: no symptoms Allergies: Coded Allergies: No Known Allergies (Unverified , 06/27/20) Objective Last 24 Hour Vital Signs Date Time Temp Pulse Resp B/P (MAP) Pulse Ox O2 Delivery O2 Flow Rate FiO2 06/30/20 09:00 Room Air 06/30/20 08:00 98.4 98 18 150/81 (104) 95 06/30/20 04:00 98.0 94 18 147/73 (97) 95 06/29/20 23:31 98.2 80 17 134/77 (96) 94 06/29/20 21:00 Room Air 06/29/20 20:49 80 18 132/74 94 06/29/20 20:19 82 18 158/77 94 06/29/20 20:00 98.6 82 18 158/77 (104) 94 06/29/20 16:00 98.3 90 21 115/89 (98) 97 06/29/20 12:00 97.1 86 20 158/81 (106) 97 Intake and Output 06/29/20 06/30/20 19:00 07:00 Intake Total 913 ml 925 ml Output Total 500 ml Balance 913 ml 425 ml Intake Oral 838 ml 100 ml IV Total 75 ml 825 ml Output Urine Total 500 ml # Voids 4 # Bowel Movements 1 General Appearance: no acute distress HEENT: normocephalic Respiratory: chest wall non-tender, lungs clear Cardiovascular: normal peripheral pulses, normal rate Abdomen: normal bowel sounds Laboratory Tests 06/30/20 05:25: Sodium Level 140, Potassium Level 4.2, Chloride Level 104, Carbon Dioxide Level 29, Anion Gap 7, Blood Urea Nitrogen 7, Creatinine 1.0, Estimat Glomerular Filtration Rate 52.7, Glucose Level 116H, Calcium Level 8.8 Current Medications Medications (Trade) Dose Ordered Sig/Zacarias Route PRN Reason Start Time Stop Time Status Last Admin Dose Admin Acetaminophen (Tylenol) 650 mg Q4H PRN ORAL Mild Pain (Pain Scale 1-3) 06/27/20 18:00 07/27/20 17:59 06/28/20 22:33 Acetaminophen/ Hydrocodone Bitart (Clovis 5/325) 1 tab Q4H PRN ORAL Moderate Pain (Pain Scale 4-6) 06/27/20 18:15 07/04/20 18:14 06/29/20 17:14 Al Hydroxide/Mg Hydroxide (Mylanta II) 30 ml Q6H PRN ORAL dyspepsia 06/27/20 18:15 07/27/20 18:14 Albuterol/ Ipratropium (Albuterol/ Ipratropium) 3 ml Q4H PRN HHN Shortness of Breath 06/27/20 18:15 07/02/20 18:14 Bisacodyl (Dulcolax) 10 mg DAILYPRN PRN RECTAL Constipation 06/27/20 18:00 09/25/20 17:59 Dextrose (Dextrose 50%) 25 ml Q30M PRN IV Hypoglycemia 06/27/20 18:15 09/25/20 18:14 Dextrose (Dextrose 50%) 50 ml Q30M PRN IV Hypoglycemia 06/27/20 18:15 09/25/20 18:14 Dextrose/ Electrolytes 1,000 ml @ 75 mls/hr [id number] IV 06/27/20 18:00 07/27/20 17:59 06/30/20 06:38 Diphenhydramine HCl (Benadryl) 25 mg Q6H PRN ORAL Itching/Pruritis 06/27/20 18:15 07/27/20 18:14 06/29/20 21:55 Docusate Sodium (Colace) 100 mg EVERY 12 HOURS ORAL 06/27/20 21:00 07/27/20 20:59 06/30/20 09:02 Famotidine (Pepcid) 20 mg BID ORAL 06/27/20 18:00 09/25/20 17:59 06/30/20 09:02 Heparin Sodium (Porcine) (Heparin 5000 units/ml) 5,000 units EVERY 12 HOURS SUBQ 06/27/20 21:00 08/11/20 20:59 06/30/20 08:38 Hydromorphone HCl (Dilaudid) 1 mg Q6H PRN IVP Severe Pain (Pain Scale 7-10) 06/29/20 21:30 07/06/20 21:29 06/29/20 23:26 Lorazepam (Ativan) 1 mg Q4H PRN ORAL For Anxiety 06/27/20 18:15 07/04/20 18:14 06/29/20 20:19 Magnesium Hydroxide (Mom) 30 ml HSPRN PRN ORAL Constipation 06/27/20 18:00 07/27/20 17:59 06/28/20 22:34 Ondansetron HCl (Zofran) 4 mg Q6H PRN IVP Nausea & Vomiting 06/27/20 18:15 07/27/20 18:14 Polyethylene Glycol (Miralax) 17 gm DAILYPRN PRN ORAL Constipation 06/27/20 18:15 07/27/20 18:14 06/28/20 12:27 Temazepam (Restoril) 15 mg HSPRN PRN ORAL Insomnia 06/27/20 21:00 07/04/20 20:59 06/29/20 23:08 Assessment/Plan Assessment/Plan IMPRESSION: 1. Pulmonary atelectasis. 2. Bowel obstruction?. 3. Dementia. 4. Hypertension. DISCUSSION: Seen by Surgery. Await further intervention. IV fluids. DVT prophylaxis. Pulmonary hygiene Oscar Coon Omar Syed MD Jun 30, 2020 10:57
[2020-06-30] MEDS: HYDROcodone/Acetamin 5/325 tab ORAL PRN (11:00)
--- NOTE | 2020-06-30 11:48 | Surgery Progress Note ---
Surgery Progress Note Subjective Additional Comments still c/o generalized pain no n/v tolerating diet +BM exam benign. Objective Last 24 Hour Vital Signs Date Time Temp Pulse Resp B/P (MAP) Pulse Ox O2 Delivery O2 Flow Rate FiO2 06/30/20 09:00 Room Air 06/30/20 08:00 98.4 98 18 150/81 (104) 95 06/30/20 04:00 98.0 94 18 147/73 (97) 95 06/29/20 23:31 98.2 80 17 134/77 (96) 94 06/29/20 21:00 Room Air 06/29/20 20:49 80 18 132/74 94 06/29/20 20:19 82 18 158/77 94 06/29/20 20:00 98.6 82 18 158/77 (104) 94 06/29/20 16:00 98.3 90 21 115/89 (98) 97 06/29/20 12:00 97.1 86 20 158/81 (106) 97 I&O Intake and Output 06/29/20 06/30/20 19:00 07:00 Intake Total 913 ml 925 ml Output Total 500 ml Balance 913 ml 425 ml Intake Oral 838 ml 100 ml IV Total 75 ml 825 ml Output Urine Total 500 ml # Voids 4 # Bowel Movements 1 Dressing: saturated Cardiovascular: RSR Respiratory: decreased breath sounds Abdomen: soft, non-tender, present bowel sounds, non-distended Extremities: no edema, no tenderness, no cyanosis Laboratory Tests Test 06/30/20 05:25 Sodium Level 140 MMOL/L (136-145) Potassium Level 4.2 MMOL/L (3.5-5.1) Chloride Level 104 MMOL/L (98-107) Carbon Dioxide Level 29 MMOL/L (21-32) Anion Gap 7 mmol/L (5-15) Blood Urea Nitrogen 7 mg/dL (7-18) Creatinine 1.0 MG/DL (0.55-1.30) Estimat Glomerular Filtration Rate 52.7 mL/min (>60) Glucose Level 116 MG/DL (74-106) H Calcium Level 8.8 MG/DL (8.5-10.1) Plan Problems: (1) SBO (small bowel obstruction) Assessment & Plan: 84F abd pain for weeks. no n/v/f/c. lab okay. CT with ? sbo tolerating diet +_flatus and BM abd exam benign hx prior appy open in teenage years no prior sbo hx fall 3 weeks ago and initially lower back pain but now lower abdominal pain unsure if related constipated okay for liquid diet trial bowel regimen am CARTER will follow with exams and recs thank you carter okay advance diet as tolerated Patient is having normal bowel function. Tolerating diet. Abdominal exam benign. She continues to complain and generalized pain including abdominal pain. She states she is had this for months. Asking for more pain medications. Clinically no acute process identified. No obstruction tolerating diet clinically benign. States his pains been ongoing for a significantly long time and despite having outpatient care and full work-up and patient continues. States she just prefers to have more pain medication. Furthermore patient identified to have a flank Wound that she states was caused by a heating pad. States her outpatient physician Dr. Hewitt takes care of the wound has been for months now. States that her home health nurse comes and changes the dressings regularly. We will continue local care while inpatient. (2) Abdominal pain Assessment & Plan: Distal small bowel loops are borderline dilated, fluid-filled, although no definite transition point is demonstrated. Proximal small bowel loops are normal in caliber. There is colonic diverticulosis. No evidence of acute diverticulitis. The proximal colon contains a moderate amount of retained stool. The appendix is not visualized, but no findings to suggest acute appendicitis are evident. No free or loculated intraperitoneal gas or fluid. The distal esophagus, stomach, duodenum are unremarkable. The liver demonstrates some focal fatty change in the usual location adjacent to the falciform ligament. The gallbladder is unremarkable. The common bile duct is mildly ectatic, measuring 7 mm in diameter. No downstream obstructive lesion is demonstrated. Somewhat ectatic downstream pancreatic duct. The pancreas is unremarkable. The spleen, adrenals, right kidney are unremarkable. Left kidney demonstrates one or more subcentimeter low-attenuation lesions, too small to characterize. No pelvic mass or adenopathy. Normal uterus and adnexal structures. The included lung bases demonstrate some atelectatic changes. The bones demonstrate degenerative spondylosis changes. There is a vertebra plana type compression fracture deformity of the T11 vertebral body, with approximately 5 mm of posterior retropulsion and approximately 70% height loss. Vacuum within the collapsed vertebral body suggests chronicity. Impression: Limited assessment of the GI tract, due to lack of enteric contrast administration Borderline dilated fluid-filled small bowel loops without definite transition point, may reflect mild enteritis changes. Possibility of low-grade small bowel obstruction should also be considered, but thought to be less likely Moderate retained proximal colonic stool, could indicate constipation Nonvisualized appendix Rubin Traylor Jun 30, 2020 11:48
[2020-06-30] MEDS ORDERED: MYLANTA II30 ML ORAL (11:55)
[2020-06-30] MEDS ORDERED: COLACE100 MG ORAL (11:55)
[2020-06-30] MEDS ORDERED: DULCOLAX10 MG RECTAL (11:55)
[2020-06-30] MEDS ORDERED: MOM30 ML ORAL (11:55)
--- NOTE | 2020-06-30 11:57 | Discharge Summary ---
Discharge Summary Hospital Course Date of Admission Jun 27, 2020 at 13:23 Date of Discharge Jun, Admitting Diagnosis SBO HPI Jonhti Beatrice Winkler is a 84 year old female who was admitted on Jun 27, 2020 at 13:23 for Small Bowel Obstruction Mrs. Winkler is a 84F with PMH dementia and HTN who presents for abdominal pain. Patient reports suffering a fall on her back in early May in which she developed both low back pain and abdominal pain. Her back pain has resolved but her abdominal pain persist. She notes daily diffuse 6-10/10 sharp abdominal pain, radiates to LLQ occasionally, no alleviating/exacerbating factors. No previous episodes in the past. Denies fevers, nausea, vomiting, diarrhea, constipation or obstipation. She had a normal BM this morning. She notes worsening oral take and poor appetite; she las lost 20 lbs since pain began. She denies any new home Meds. She currently lives at home with her and a care administrative tech. Her gait has become less stable since the fall and due to her pain. No recent illnesses, sick contacts or travels. Rest of ten point ROS is negative besides whats stated above. In the ED, CT showed possible SBO. She remains hemodynamically stable. No respiratory compromise. EKG nsr without acute ST changes. Hospital Course Mrs. Winkler s a 84F being admitted for abdominal pain secondary to SBO. Patient maintained NPO, received IV fluids and bowel regimen. She had a bowel movement and was passing flatus. Her diet was advanced appropriately and tolerated. She had Acute kidney injury on admission which resolved with IVF. Patient received wound care for R flank burn scar (present on admission). She is stable for discharge. 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 normal Skin: Right flank area burn scar, no fluctuance , clean DC diagnosis: # Abdominal Pain #SBO #Constipation # BASILIA likely 2/2 pre-renal azotemia # Hyperglycemia # Hx of Dementia likely 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 #R flank burn secondary to heating pad at home Discharge Medications New Medications: Al Hydroxide/mg Hydroxide (Mag-Al Plus Suspension) 30 Ml Oral.susp 30 ML ORAL Q6H PRN for 10 Days, #400 ML Bisacodyl (Dulcolax) 10 Mg Supp.rect 10 MG RECTAL DAILYPRN PRN for 10 Days, #5 SUPP Docusate Sodium* (Colace*) 100 Mg Capsule 100 MG ORAL EVERY 12 HOURS for 30 Days, #60 CAP Magnesium Hydroxide (Milk of Magnesia) 400 Mg/5 Ml Oral.susp 30 ML ORAL HSPRN PRN for 28 Days, #400 ML Continued Medications: Clonidine Hcl* (Catapres*) 0.1 Mg Tablet 0.1 MG ORAL BID for htn, TAB Donepezil Hcl* (Aricept*) 5 Mg Tablet 5 MG ORAL DAILY for dementia, TAB Duloxetine Hcl* (Cymbalta*) 60 Mg Capsule.dr 60 MG ORAL DAILY for psych, CAP Gabapentin* (Gabapentin*) 600 Mg Tablet 600 MG ORAL THREE TIMES A DAY for neuropathy, TAB Losartan Potassium* (Losartan Potassium*) 50 Mg Tablet 100 MG ORAL DAILY for Hypertension, TAB Meloxicam* (Mobic*) 15 Mg Tablet 15 MG ORAL DAILY for HTN, #30 TAB 0 Refills Memantine Hcl* (Namenda*) 10 Mg Tablet 10 MG ORAL DAILY for dementia, TAB Tizanidine Hcl* (Zanaflex*) 4 Mg Tablet 2 MG ORAL THREE TIMES A DAY for spasms, #90 TAB 0 Refills Tramadol Hcl* (Ultram*) 50 Mg Tablet 50 MG ORAL Q6H PRN for For Pain, #12 TAB 0 Refills Discharge Condition Upon Discharge: stable Discharge Vital Signs Last Vital Signs Date Time Temp Pulse Resp B/P (MAP) Pulse Ox O2 Delivery O2 Flow Rate FiO2 06/30/20 09:00 Room Air 06/30/20 08:00 98.4 98 18 150/81 (104) 95 06/28/20 20:06 21 Discharge Disposition Patient was discharged to home Discharge Diagnoses: (1) SBO (small bowel obstruction) (2) BASILIA (acute kidney injury) (3) Dementia (4) Abdominal pain Jonnathan Ramirez M.D. Jun 30, 2020 11:57
[2020-06-30 12:00] VITALS: BP 147/77
--- NOTE | 2020-06-30 14:00 | NUR ---
NURSE NOTES: pt discharged in stable condition, pt picked by her home caregiver . lead quality technician signed the discharge papers as told by pt. Pt escorted down stairs by ER entrance in wheel chair and helped into the passenger sit.
== END 2020-06-30 14:26 | disposition home or self-care (01) | DRG 389 ==
LOC: EMR 10:25 → 2E 13:23 → EDBEDREQ 16:21 → EMR 16:25 → 3E 06-28 23:00
DX: K56.609 Unspecified intestinal obstruction, unspecified as to partial versus complete obstruction (principal); N17.9 Acute kidney failure, unspecified; J98.11 Atelectasis; F02.80 Dementia in other diseases classified elsewhere, unspecified severity, without behavioral disturbance, psychotic disturbance, mood disturbance, and anxiety; T21.02XA Burn of unspecified degree of abdominal wall, initial encounter; X19.XXXA Contact with other heat and hot substances, initial encounter; Y92.009 Unspecified place in unspecified non-institutional (private) residence as the place of occurrence of the external cause; S22.068D Other fracture of T7-T8 thoracic vertebra, subsequent encounter for fracture with routine healing; W19.XXXD Unspecified fall, subsequent encounter
CPT/HCPCS: 36415; 71045; 74018; 74177; 80048; 80053; 83690; 83735; 84100; 84484; 85025; 85610; 85730; 93005; 94664; 96361; 96374; 99285